=== PATIENT | male | born 1990 ===

== ENCOUNTER 2018-05-05 04:00 | Emergency (ER) | payer OTHER, BC ==
[2018-05-05 04:12] VITALS: BP 135/70; PULSE 77; RESP 16; TEMP 97.5; O2SAT 98
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
== END 2018-05-05 05:32 | disposition home or self-care (01) ==
LOC: H.ER 04:00
DX: S39.012A Strain of muscle, fascia and tendon of lower back, initial encounter (principal); V43.52XA Car driver injured in collision with other type car in traffic accident, initial encounter; Y92.410 Unspecified street and highway as the place of occurrence of the external cause